=== PATIENT | female | born 1935 | race Hispanic/Latino ===

== ENCOUNTER 2022-11-16 17:49 | Inpatient (IN) | payer OTHER ==
[~2022-11-16] VITALS: Ht 157.5 cm; Wt 80.3 kg
[2022-11-16 19:17] LABS: BASOPHILS % (AUTO) 0.7 % (0.0-5.0); EOSINOPHILS % (AUTO) 2.8 % (0.0-8.0); HEMATOCRIT 34.9 % (36-48); LYMPHOCYTES % (AUTO) 22.1 % (21.0-51.0); MEAN CORPUSCULAR HGB CONC 33.5 g/dL (32.0-36.0); MEAN CORPUSCULAR VOLUME 83.5 fL (79-99); MONOCYTES % (AUTO) 8.3 % (3.0-13.0); NEUTROPHILS % (AUTO) 65.4 % (40.0-77.0); PLATELET COUNT (AUTO) 149 K/uL (130-400); RED BLOOD CELL COUNT(AUTO) 4.18 MIL/uL (4.00-5.50); WHITE BLOOD COUNT (AUTO) 6.8 K/uL (4.8-10.8)
[2022-11-16 19:31] LABS: CREATININE 1.8 mg/dL (0.5-1.5); POTASSIUM 4.3 mmol/L (3.5-5.1)
[2022-11-16 19:38] LABS: ALBUMIN 3.6 g/dL (3.5-5.0); TOTAL PROTEIN, SERUM 6.6 g/dL (6.0-8.3)
[2022-11-16 19:41] LABS: B-TYPE NATRIURETIC PEPTIDE 67 pg/mL (0-100)
[2022-11-16] MEDS ORDERED: IPRATROPIUM/ALBUTEROL SULFATE 3 ML SOLUTION IH ONE ×2 (20:46→21:00)
[2022-11-16 20:56] LABS: APPEARANCE,URINE CLEAR (CLEAR); BILIRUBIN,URINE NEGATIVE (NEGATIVE); COLOR,URINE LIGHT-YELLOW (YELLOW); GLUCOSE, URINE (UA) NEGATIVE (NEGATIVE); KETONES,URINE NEGATIVE (NEGATIVE); LEUKOCYTE ESTERASE ,URINE 75 Leu/uL (NEGATIVE); NITRATE,URINE NEGATIVE (NEGATIVE); OCCULT BLOOD,URINE NEGATIVE (NEGATIVE); PROTEIN,URINE NEGATIVE (NEGATIVE); UROBILINOGEN,URINE 0.2 mg/dL (0.2-1.0)
[2022-11-16 21:10] LABS: BACTERIA,URINE RARE /HPF (None Seen); MUCUS,URINE RARE LPF (None Seen); SQUAMOUS EPITHELIAL CELL,UR MOD /HPF (0-2)
[2022-11-16 21:51] VITALS: PULSE 51; RESP 20
[2022-11-16 22:17] LABS: ABG BASE EXCESS -3.7 mmol/L (-2.0-3.0); ABG HCO3 20.6 mmol/L (21.0-28.0); ABG PCO2 35 mmHg (32-45)
[2022-11-17] VITALS (11 sets, daily range): BP systolic 111–126; BP diastolic 67–75; PULSE 61–89; RESP 17–22; O2SAT 91–99
[2022-11-17] MEDS ORDERED: ONDANSETRON 4MG INJ IVP PRN (02:00)
[2022-11-17] MEDS ORDERED: ACETAMINOPHEN 325 MG TAB PO PRN (02:00)
[2022-11-17] MEDS: IPRATROPIUM/ALBUTEROL SULFATE 3 ML SOLUTION IH SCH ×6 (02:37→23:14)
[2022-11-17] MEDS: 0.9%NACL 1000ML 1,000 ML IV SCH ×2 (02:42→20:58)
[2022-11-17] MEDS: CEFTRIAXONE 2GM VIAL IVP SCH (02:42)
[2022-11-17 04:42] LABS: % IRON SATURATION 14.5 % (22-44)
[2022-11-17 11:39] LABS: HEMOGLOBIN A1C 7.4 % (4.0-6.0)
[2022-11-17] MEDS: INSULIN HUMULIN R 100 UNIT/ML 3ML SQ SCH ×3 (12:30→20:57)
[2022-11-17] MEDS ORDERED: ATOR20TA65 PO (18:47)
[2022-11-17] MEDS ORDERED: FURO20TA4 PO (18:47)
[2022-11-17] MEDS ORDERED: METO50 PO (18:47)
[2022-11-17] MEDS ORDERED: SPIR50TA5 PO (18:47)
[2022-11-17] MEDS ORDERED: METF-444 PO (18:47)
[2022-11-17] MEDS ORDERED: OMEP-420 PO (18:47)
[2022-11-18] VITALS (14 sets, daily range): BP systolic 104–142; BP diastolic 50–81; PULSE 69–99; RESP 16–22; O2SAT 96–99
[2022-11-18] MEDS: CEFTRIAXONE 2GM VIAL IVP SCH (00:49)
[2022-11-18] MEDS: IPRATROPIUM/ALBUTEROL SULFATE 3 ML SOLUTION IH SCH ×3 (02:17→10:52)
[2022-11-18] MEDS: INSULIN HUMULIN R 100 UNIT/ML 3ML SQ SCH ×4 (05:49→20:38)
[2022-11-18 07:01] LABS: BASOPHILS % (AUTO) 0.7 % (0.0-5.0); EOSINOPHILS % (AUTO) 2.2 % (0.0-8.0); HEMATOCRIT 32.7 % (36-48); LYMPHOCYTES % (AUTO) 18.3 % (21.0-51.0); MEAN CORPUSCULAR HEMOGLOBIN 28.1 pg (27.0-33.0); MEAN CORPUSCULAR HGB CONC 32.7 g/dL (32.0-36.0); MEAN CORPUSCULAR VOLUME 85.8 fL (79-99); MONOCYTES % (AUTO) 11.5 % (3.0-13.0); NEUTROPHILS % (AUTO) 66.9 % (40.0-77.0); PLATELET COUNT (AUTO) 96 K/uL (130-400); RED BLOOD CELL COUNT(AUTO) 3.81 MIL/uL (4.00-5.50); RED CELL DISTRIBUTION WIDTH 13.2 % (11.0-15.5); WHITE BLOOD COUNT (AUTO) 4.5 K/uL (4.8-10.8)
[2022-11-18 07:15] LABS: ALBUMIN 3.1 g/dL (3.5-5.0); POTASSIUM 3.9 mmol/L (3.5-5.1); TOTAL PROTEIN, SERUM 6.6 g/dL (6.0-8.3)
[2022-11-18] MEDS: SOLU-MEDROL 40MG VIAL IVP SCH ×2 (08:36→20:37)
[2022-11-18] MEDS ORDERED: IPRATROPIUM/ALBUTEROL SULFATE 3 ML SOLUTION IH PRN (11:30)
[2022-11-18] MEDS: 0.9%NACL 1000ML 1,000 ML IV SCH (12:01)
[2022-11-18] MEDS: ATORVASTATIN 20 MG TABLET PO SCH (20:37)
[2022-11-19] VITALS (20 sets, daily range): BP systolic 110–148; BP diastolic 48–82; PULSE 50–95; RESP 18–24; O2SAT 87–99
[2022-11-19] MEDS ORDERED: ALBUTEROL 0.083% 2.5 MG/3 ML INH IH PRN (01:30)
[2022-11-19] MEDS: CEFTRIAXONE 2GM VIAL IVP SCH (02:08)
[2022-11-19 04:59] LABS: BASOPHILS % (AUTO) 0.1 % (0.0-5.0); HEMATOCRIT 34.9 % (36-48); LYMPHOCYTES % (AUTO) 7.7 % (21.0-51.0); MEAN CORPUSCULAR HEMOGLOBIN 28.6 pg (27.0-33.0); MEAN CORPUSCULAR HGB CONC 33.5 g/dL (32.0-36.0); MEAN CORPUSCULAR VOLUME 85.3 fL (79-99); MONOCYTES % (AUTO) 4.2 % (3.0-13.0); NEUTROPHILS % (AUTO) 86.9 % (40.0-77.0); PLATELET COUNT (AUTO) 104 K/uL (130-400); RED BLOOD CELL COUNT(AUTO) 4.09 MIL/uL (4.00-5.50); RED CELL DISTRIBUTION WIDTH 12.8 % (11.0-15.5)
[2022-11-19 05:22] LABS: ALBUMIN 3.1 g/dL (3.5-5.0); CREATININE 1.1 mg/dL (0.5-1.5); MAGNESIUM 1.7 mg/dL (1.80-2.40); POTASSIUM 4.6 mmol/L (3.5-5.1); TOTAL PROTEIN, SERUM 6.9 g/dL (6.0-8.3)
[2022-11-19] MEDS ORDERED: MAGNESIUM 2GM PREMIX 50ML 50 ML IV PRN (05:30)
[2022-11-19 05:42] LABS: B-TYPE NATRIURETIC PEPTIDE 192 pg/mL (0-100)
[2022-11-19] MEDS: INSULIN HUMULIN R 100 UNIT/ML 3ML SQ SCH ×4 (06:15→20:44)
[2022-11-19] MEDS ORDERED: METH4TAB3 PO (08:40)
[2022-11-19] MEDS ORDERED: ALBU2.5V2 IH (08:40)
[2022-11-19] MEDS ORDERED: LEVO-70 PO (08:40)
[2022-11-19] MEDS ORDERED: SPIRONOLACTONE PO SCH (09:00)
[2022-11-19] MEDS: METOPROLOL TARTRATE 50 MG TAB PO SCH (09:06)
[2022-11-19] MEDS: SOLU-MEDROL 40MG VIAL IVP SCH (09:08)
[2022-11-19] MEDS ORDERED: FURO20TA6 PO (13:35)
[2022-11-19 13:36] LABS: ABG BASE EXCESS -2.8 mmol/L (-2.0-3.0); ABG HCO3 21.6 mmol/L (21.0-28.0); ABG OXYGEN SATURATION 90.7 % (95.0-99.0); ABG PCO2 37 mmHg (32-45)
[2022-11-19] MEDS: ATORVASTATIN 20 MG TABLET PO SCH (20:43)
[2022-11-20] VITALS: BP 111/63; PULSE 60; RESP 24
[2022-11-20] MEDS: CEFTRIAXONE 2GM VIAL IVP SCH (02:01)
[2022-11-20 04:00] VITALS: BP 144/83; PULSE 59; RESP 24
[2022-11-20] MEDS: INSULIN HUMULIN R 100 UNIT/ML 3ML SQ SCH ×3 (05:43→16:51)
[2022-11-20 07:45] VITALS: O2SAT 99
[2022-11-20 07:47] VITALS: PULSE 60; RESP 18; O2SAT 98
[2022-11-20 08:00] VITALS: BP 127/61; PULSE 52; RESP 18
[2022-11-20] MEDS: METOPROLOL TARTRATE 50 MG TAB PO SCH (09:10)
[2022-11-20] MEDS: SOLU-MEDROL 40MG VIAL IVP SCH (09:10)
[2022-11-20 12:00] VITALS: BP 131/81; PULSE 50; RESP 18
== END 2022-11-20 17:30 | disposition home or self-care (01) | DRG 682 ==
LOC: EDH 17:49 → EDHIP 11-17 01:03 → 3DH 11-17 16:27
PROVIDERS: ADMIT Hospitalist; ATTEND Hospitalist
DX: N17.0 Acute kidney failure with tubular necrosis (principal); J96.01 Acute respiratory failure with hypoxia; R53.2 Functional quadriplegia; J44.1 Chronic obstructive pulmonary disease with (acute) exacerbation; N30.00 Acute cystitis without hematuria; Z74.01 Bed confinement status; M94.0 Chondrocostal junction syndrome [Tietze]; R00.1 Bradycardia, unspecified; D64.9 Anemia, unspecified; D69.6 Thrombocytopenia, unspecified; E11.65 Type 2 diabetes mellitus with hyperglycemia; E78.00 Pure hypercholesterolemia, unspecified; E86.0 Dehydration; I11.0 Hypertensive heart disease with heart failure; I50.9 Heart failure, unspecified; K74.60 Unspecified cirrhosis of liver; Z79.899 Other long term (current) drug therapy; B96.1 Klebsiella pneumoniae [K. pneumoniae] as the cause of diseases classified elsewhere
CPT/HCPCS: 36415; 36600; 71045; 71250; 80053; 81001; 82435; 82803; 82947; 82948; 83036; 83540; 83550; 83605; 83735; 83880; 84132; 84295; 84484; 85018; 85025; 85651; 87077; 87088; 87186; 93005; 93306; 93356; 94640; 94664; 94760; 97039; G0378; J0696; J1815; J2405; J2920; J3475; J7030